=== PATIENT | female | born 1990 | race African-American/Black ===

== ENCOUNTER 2022-02-10 10:35 | Emergency (ER) | payer MEDICAID ==
[~2022-02-10] VITALS: Ht 162.6 cm; Wt 81.0 kg
[~2022-02-10 10:35] MED LIST: ABILIFY; ALBU2.5V13; ATIVAN; DEPAKOTE; QUET25TA; RISPERDAL; WELLBUTRIN
[2022-02-10 10:38] VITALS: BP 106/60
== END 2022-02-10 11:37 | disposition home or self-care (01) ==
LOC: ER 10:35
DX: O26.892 Other specified pregnancy related conditions, second trimester (principal); R06.00 Dyspnea, unspecified; Z3A.27 27 weeks gestation of pregnancy
CPT/HCPCS: 93005; 99283